=== PATIENT | male | born 1980 | race African-American/Black ===

== ENCOUNTER 2022-06-06 00:58 | Observation (INO) | payer BC ==
[2022-06-06 02:54] VITALS: BMI 36.3
[2022-06-06] MEDS ORDERED: Albuterol 200 PUFF (6.7GM INHALER) INH PRN (03:08)
[2022-06-06] MEDS ORDERED: Morphine 2 MG/ML VIAL SLOW IVP PRN (03:14)
[2022-06-06] MEDS ORDERED: Morphine 4 MG/ML VIAL SLOW IVP PRN (03:15)
[2022-06-06] MEDS ORDERED: Ondansetron PF 4 MG/2 ML Vial IVP PRN (03:40)
[2022-06-06] MEDS ORDERED: Acetaminophen 325 MG TAB PO PRN (03:40)
[2022-06-06] MEDS ORDERED: Acetaminophen 650 MG Suppository PR PRN (03:40)
[2022-06-06] MEDS ORDERED: Ondansetron ODT 4 MG TAB PO PRN (03:40)
[2022-06-06 04:47] LABS: SARS-CoV-2 NAA Rapid Test Not Detected (NotDetected)
[2022-06-06] MEDS ORDERED: Piperacillin/Tazobactam 3.375 GM in Sodium Chloride 0.9% 100 ML IVPB SCH ×2 (05:00→09:00)
[2022-06-06] MEDS ORDERED: Sodium Chloride 0.9% 1,000 ML IV SCH (05:00)
[2022-06-06 05:33] LABS: Anion Gap 12 mmol/L (10-20); BUN (Urea Nitrogen) 9 mg/dL (8.9-20.6); Calc. Creatinine Clearance 143 mL/min (70-130); Calcium 8.9 mg/dL (7.8-10.44); Carbon Dioxide 26 mmol/L (22-29); Chloride 104 mmol/L (98-107); Estimated GFR 98; Glucose 106 mg/dL (70-105); Potassium 3.9 mmol/L (3.5-5.1); Sodium 138 mmol/L (136-145)
[2022-06-06 06:05] LABS: Band 1 % (5-11); Eosinophils 6 % (0-10); Hemoglobin 14.4 g/dL (14.0-18.0); Lymphocytes 55 % (21-51); MDiff Complete? YES; Mean Corpuscular HGB CONC 33.6 g/dL (32.0-36.0); Mean Corpuscular Hemoglobin 31.2 pg (27.0-31.0); Mean Corpuscular Volume 92.8 fL (78.0-98.0); Mean Platelet Volume 7.9 fL (7.4-10.4); Monocytes 7 % (0-10); Neutrophil 31 % (42-75); Platelet Count 212 thou/uL (130-400); White Blood Cell (WBC) Count 6.3 thou/uL (4.8-10.8)
[2022-06-06 12:27] VITALS: BP 141/95; TEMP 97.6
== END 2022-06-06 14:29 | disposition home or self-care (01) ==
LOC: SURG B 02:12
PROVIDERS: ADMIT Family Medicine; ATTEND Family Medicine
DX: K52.9 Noninfective gastroenteritis and colitis, unspecified (principal); K21.9 Gastro-esophageal reflux disease without esophagitis; R73.03 Prediabetes; R03.0 Elevated blood-pressure reading, without diagnosis of hypertension; J45.909 Unspecified asthma, uncomplicated; Z91.041 Radiographic dye allergy status; Z20.822 Contact with and (suspected) exposure to COVID-19
CPT/HCPCS: 36415; 80048; 85025; 96374; 96376; G0378; J2543; J3490; J7050; U0002